=== PATIENT | male | born 1950 | race Caucasian/White ===

== ENCOUNTER 2021-12-14 11:09 | Emergency (ER) | payer OTHER, SELFPAY ==
--- NOTE | 2021-12-14 11:15 | ED.SKABFB ---
HPI - Skin/Abscess/Foreign Bdy General Chief complaint: Skin/Abscess/Foreign Body Stated complaint: bite on left forearm Time Seen by Provider: 12/14/21 11:15 Source: patient Mode of arrival: ambulatory Limitations: no limitations History of Present Illness HPI narrative: Mr. Casas is a 71-year-old male patient presenting to the clinic today with complaints of possible insect bite to his left forearm. He reports he first noticed the bite to his left forearm on Sunday. He reports that the area has become more red, itching, mild tenderness, with blistering. States that the area started out as a brown spot with 2 insect bite rogers. He denies any fever or chills. He reports that it is very itchy. He is concerned that it may be a spider bite. Related Data Home Medications Medication Instructions Recorded Confirmed aspirin 81 mg capsule 81 mg PO DAILY 12/14/21 12/14/21 atorvastatin 80 mg tablet 80 mg DIRECTED 12/14/21 12/14/21 hydrochlorothiazide 25 mg tablet 25 mg DIRECTED 12/14/21 12/14/21 irbesartan 300 mg tablet 300 mg DIRECTED 12/14/21 12/14/21 Allergies Allergy/AdvReac Type Severity Reaction Status Date / Time No Known Allergies Allergy Verified 12/14/21 11:32 Review of Systems Review of Systems: Pertinent positives per HPI. Patient denies any fever, chills, rash, headache, visual changes, dizziness, cough, runny nose, sore throat, shortness of breath, chest pain, palpitations, nausea, vomiting, diarrhea, constipation, abdominal pain, or any urinary issues. PMFSH Comments At the time of my signature, I reviewed and agree with the nursing past medical, surgical, social, and family history. There is no relevant family history pertinent to the patient complaint. Exam Narrative: General: Well-developed, well nourished, in no apparent distress Head: Normocephalic, atraumatic. Cardio: Regular rate and rhythm, s1 and s2 normal, no murmur appreciated. Resp: Clear to auscultation bilaterally, no rhonchi, rales, wheezing or rubs. Integumentary: [place], warm, and dry, intact without lesion, left anterior forearm with redness approximately size of a softball with vesicular blister lesions surrounding a brown area likely from insect bite to the skin, area is mildly tender to palpation without fluctuance or obvious palpable abscess, has a verticle streaking vesicular lesion going from this area to the backside of the arm. Course Course Emergency Course: Portions of this record may have been created with voice recognition software. Level of Care: Express Care Visit Vital Signs Vital signs: Vital Signs Temperature 36.9 C 12/14/21 11:22 Pulse Rate 72 12/14/21 11:22 Respiratory Rate 18 12/14/21 11:22 Blood Pressure 131/65 12/14/21 11:22 Pulse Oximetry 97 12/14/21 11:22 Oxygen Delivery Room Air 12/14/21 11:22 Temperature 36.9 C 12/14/21 11:22 Pulse Rate 72 12/14/21 11:22 Respiratory Rate 18 12/14/21 11:22 Blood Pressure 131/65 12/14/21 11:22 Pulse Oximetry 97 12/14/21 11:22 Oxygen Delivery Room Air 12/14/21 11:22 Vital signs reviewed MDM - Skin/Abscess/Foreign Bdy MDM Narrative Medical decision making narrative: At the time of visit patient is resting comfortably on the exam table. Patient has a probable insect bite with a general allergic reaction surrounding the bite. I will give him a course of prednisone, triamcinolone cream, and also a prescription for some doxycycline to cover any secondary infection if this is a spider bite. Supportive measures were discussed with the patient he voiced understanding of discharge instructions and agrees to treatment plan. Differential Diagnosis Differential diagnosis: Likely insect bites and other (Allergic reaction) Discharge Plan Discharge Clinical Impression: Allergic reaction to insect bite Patient Disposition: Home, Self-Care Condition: Stable Instructions: Antibiotic Form, Insect Bite or Sting (ED), Gener
[2021-12-14 11:22] VITALS: BP 131/65; PULSE 72; RESP 18; TEMP 36.9; O2SAT 97
== END 2021-12-14 11:44 | disposition home or self-care (01) ==
PROVIDERS: Emergency Provider Nurse Practitioner Family; PCP Internal Medicine
DX: S50.861A Insect bite (nonvenomous) of right forearm, initial encounter (principal); W57.XXXA Bitten or stung by nonvenomous insect and other nonvenomous arthropods, initial encounter; E78.00 Pure hypercholesterolemia, unspecified; I10 Essential (primary) hypertension; Z95.5 Presence of coronary angioplasty implant and graft
CPT/HCPCS: 99213; G0463

== ENCOUNTER 2022-11-01 10:28 | Emergency (ER) | payer OTHER, SELFPAY ==
--- NOTE | 2022-11-01 10:29 | ED.SKABFB ---
HPI - Skin/Abscess/Foreign Bdy General Chief complaint: Skin/Abscess/Foreign Body Stated complaint: Rash Time Seen by Provider: 11/01/22 10:29 Source: patient and RN notes reviewed History of Present Illness HPI narrative: Patient is a 72-year-old male who presents to urgent care with complaints of a rash to the left arm. Patient believes he got into poison tennille while trimming brush on the side of his house on Sunday. Patient states that he noticed it Sunday evening and has been using triamcinolone without much relief. Patient states he has now noted some on the right wrist. No other acute complaints. No acute distress noted. Patient aware of the plan of care. Some parts of this dictation were generated by voice recognition software and may contain typographical and/or grammatical inaccuracies. Related Data Home Medications Medication Instructions Recorded Confirmed aspirin 81 mg capsule 81 mg PO DAILY 12/14/21 11/01/22 atorvastatin 80 mg tablet 80 mg DIRECTED 12/14/21 11/01/22 hydrochlorothiazide 25 mg tablet 25 mg DIRECTED 12/14/21 11/01/22 irbesartan 300 mg tablet 300 mg DIRECTED 12/14/21 11/01/22 Allergies Allergy/AdvReac Type Severity Reaction Status Date / Time No Known Allergies Allergy Verified 11/01/22 10:46 Review of Systems Review of Systems: CONSTITUTIONAL: Denies fever, chills, or sweats. EYES: Denies visual changes, redness, or discharge. ENT: Denies rhinorrhea, congestion, sore throat, or otalgia. CARDIOVASCULAR: Denies chest pain, palpitations, or edema. RESPIRATORY: Denies cough or dyspnea. GASTROINTESTINAL: Denies abdominal pain, nausea, vomiting, or diarrhea. GENITOURINARY: Denies dysuria or hematuria. SKIN: Reports of itchy rash to the left arm and right wrist MUSCULOSKELETAL: Denies back pain, joint pain, or myalgia. NEUROLOGIC: Denies headache, numbness, or weakness. All other systems reviewed are negative, except as documented in HPI. PMFSH Comments At the time of my signature, I reviewed and agree with the nursing past medical, surgical, social, and family history. There is no relevant family history pertinent to the patient complaint. Exam Narrative: GENERAL: This is a well-nourished, well-developed patient, in no apparent distress. HEAD: normocephalic, atraumatic. EYES: PERRL. Sclera clear/white. Vision is grossly intact. EARS: External ears normal NOSE: External nose normal with no obvious nasal discharge, nares without redness, no rhinorrhea. THROAT: Mucous membranes moist NECK: Neck supple SKIN: Patchy, Puretic, raised erythema dermatitis noted to the left lower arm and right wrist. Warm, intact with no suspicious lesions or rash, good texture and turgor. NEURO: awake, alert, and oriented to person, place and time. There were no obvious focal neurologic abnormalities. EXTREMITIES: No clubbing, cyanosis, or edema. Course Course Level of Care: Express Care Visit Vital Signs Vital signs: Vital Signs Temperature 98.4 F 11/01/22 10:43 Pulse Rate 84 11/01/22 10:43 Respiratory Rate 14 11/01/22 10:43 Blood Pressure 122/64 11/01/22 10:43 Pulse Oximetry 97 11/01/22 10:43 Oxygen Delivery Room Air 11/01/22 10:43 Temperature 98.4 F 11/01/22 10:43 Pulse Rate 84 11/01/22 10:43 Respiratory Rate 14 11/01/22 10:43 Blood Pressure 122/64 11/01/22 10:43 Pulse Oximetry 97 11/01/22 10:43 Oxygen Delivery Room Air 11/01/22 10:43 Reviewed MDM - Skin/Abscess/Foreign Bdy MDM Narrative Medical decision making narrative: Advised patient complete the steroid regimen as prescribed. Be sure to eat and drink with the medication. Protect yourself while out in the sun, considering you are on a steroid. Continue the triamcinolone to the affected areas avoiding the rhina, under arms, near the eyes. Would recommend a daily antihistamine such as Claritin/Zyrtec/Benadryl. Follow-up with your PCP within 2-5 days or for worsening symptom
[2022-11-01 10:43] VITALS: BP 122/64; PULSE 84; RESP 14; TEMP 36.9; O2SAT 97
== END 2022-11-01 11:05 | disposition home or self-care (01) ==
PROVIDERS: Emergency Provider Nurse Practitioner Family; PCP Internal Medicine
DX: L23.7 Allergic contact dermatitis due to plants, except food (principal); E78.00 Pure hypercholesterolemia, unspecified; I10 Essential (primary) hypertension; I25.10 Atherosclerotic heart disease of native coronary artery without angina pectoris; Z95.5 Presence of coronary angioplasty implant and graft; Z79.82 Long term (current) use of aspirin
CPT/HCPCS: 99213; G0463

== ENCOUNTER 2023-07-30 16:43 | Emergency (ER) | payer OTHER, SELFPAY ==
[2023-07-30 17:04] VITALS: BP 118/62; PULSE 76; RESP 20; TEMP 37; O2SAT 98
--- NOTE | 2023-07-30 17:33 | ED.SKABFB ---
HPI - Skin/Abscess/Foreign Bdy General Chief complaint: Skin/Abscess/Foreign Body Stated complaint: poss poison tennille Time Seen by Provider: 07/30/23 17:25 Source: patient, RN notes reviewed and old records reviewed Mode of arrival: ambulatory Limitations: no limitations History of Present Illness HPI narrative: 73-year-old male accompanied by Y presents to Express Care with of rash to bilateral arms with itching from working in yard last weekend and this weekend. Patient reports that rash is itching and has now spread to both arms. Patient reports he thinks he was exposed to poison t[place] while working in yard. Patient reports that he has applied some Triamcinolone ointment to rash on arms,denies any fevers MD complaint: rash Onset (ago): day(s) (2) Severity: moderate Treatments prior to arrival: OTC topical medication Related Data Home Medications Medication Instructions Recorded Confirmed aspirin 81 mg capsule 81 mg PO DAILY 12/14/21 07/30/23 atorvastatin 80 mg tablet 80 mg PO DAILY 12/14/21 07/30/23 hydrochlorothiazide 25 mg tablet 25 mg PO DAILY 12/14/21 07/30/23 irbesartan 300 mg tablet 300 mg PO DAILY 12/14/21 07/30/23 Allergies Allergy/AdvReac Type Severity Reaction Status Date / Time No Known Allergies Allergy Verified 11/01/22 10:46 Review of Systems Review of Systems: CONSTITUTIONAL: Denies fever, chills, or sweats. CARDIOVASCULAR: Denies chest pain, palpitations, or edema. RESPIRATORY: Denies cough or dyspnea. SKIN: Reports rash to bilateral forearms itchy MUSCULOSKELETAL: Denies joint pain or myalgia. NEUROLOGIC: Denies headache, numbness, or weakness. All systems reviewed & are unremarkable except as noted in HPI and below PMFSH Past Medical History Medical History (Updated 07/31/23 @ 22:17 by Diane Hernandez NP) Hyperlipidemia Hypertension Surgical History Surgical History (Updated 07/31/23 @ 22:14 by Diane Hernandez NP) H/O arthroscopy of right knee History of cholecystectomy History of coronary artery stent placement Social History Social History (Updated 07/31/23 @ 22:15 by Diane Hernandez NP) Smoking status: Never smoker Alcohol intake: unknown Substance use type: does not use Living arrangements: with family Gender identity (if verbalized by the patient): Male Comments At time of signature, agree with nursing past medical, surgical, social and family history. There is no relevant family history pertinent to the presenting complaint Exam Narrative: GENERAL: Well-appearing, well-nourished, and in no acute distress. HEAD: Normocephalic, atraumatic. EYES: PERRLA, conjunctivae clear, and EOMI. ENT: Mucous membranes moist. Oropharynx without edema, erythema or lesions. NECK: Supple. No lymphadenopathy CHEST: Clear to auscultation. No respiratory distress.SA2 98% on room air HEART: Regular rate and rhythm. SKIN: Warm, dry.? Patches of red raised scattered rash to bilateral forearms. NEURO:? Alert and oriented x3. PSYCH: Normal mood and affect Course Course Emergency Course: Patient is aware of diagnosis, understands and agrees to treatment plan.? Anticipatory guidance given.? Patient agrees to follow-up as directed and is aware of reasons to seek care at the emergency department. Portions of this record may have been created with voice recognition software Level of Care: Express Care Visit Vital Signs Vital signs: Vital Signs Temperature 37.0 C 07/30/23 17:04 Pulse Rate 76 07/30/23 17:04 Respiratory Rate 20 07/30/23 17:04 Blood Pressure 118/62 07/30/23 17:04 Pulse Oximetry 98 07/30/23 17:04 Oxygen Delivery Room Air 07/30/23 17:04 Temperature 37.0 C 07/30/23 17:04 Pulse Rate 76 07/30/23 17:04 Respiratory Rate 20 07/30/23 17:04 Blood Pressure 118/62 07/30/23 17:04 Pulse Oximetry 98 07/30/23 17:04 Oxygen Delivery Room Air 07/30/23 17:04 Reviewed MDM - Skin/Abscess/Foreign Bdy
== END 2023-07-30 17:55 | disposition home or self-care (01) ==
PROVIDERS: Emergency Provider Registered Nurse; PCP Internal Medicine
DX: L25.9 Unspecified contact dermatitis, unspecified cause (principal); E78.5 Hyperlipidemia, unspecified; I10 Essential (primary) hypertension; Z95.5 Presence of coronary angioplasty implant and graft; Z79.82 Long term (current) use of aspirin
CPT/HCPCS: 99213; G0463